=== PATIENT | male | born 1985 ===

== ENCOUNTER 2021-01-07 15:54 | Emergency (ER) | payer OTHER ==
[~2021-01-07] VITALS: Ht 188 cm; Wt 109.1 kg
[2021-01-07 16:09] VITALS: BP 131/77; Ht 188 cm; Wt 109.1 kg
== END 2021-01-07 17:09 | disposition home or self-care (01) ==
LOC: D.ER 15:54
DX: F11.20 Opioid dependence, uncomplicated (principal)